=== PATIENT | female | born 1995 | race Caucasian/White ===

== ENCOUNTER 2016-09-10 22:05 | Emergency (ER) | payer MEDICAID ==
[~2016-09-10] VITALS: Ht 157.5 cm; Wt 65.0 kg
[~2016-09-10 22:05] MED LIST: ADDE20TA PO; IBUP600T26 PO; VERMOX PO
[2016-09-10 22:10] VITALS: BP 114/79; PULSE 90; RESP 18; TEMP 98.3; O2SAT 99
[2016-09-10 22:20] VITALS: BP 114/79; PULSE 90; RESP 18; TEMP 98.3; O2SAT 99
[2016-09-10] MEDS ORDERED: ADDE30TA PO (22:24)
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
[2016-09-10] MEDS ORDERED: IBUP-232 PO (22:25)
[2016-09-10] MEDS ORDERED: IBUPROFEN 400 MG TAB PO ONE (22:30)
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
[2016-09-11 00:24] VITALS: BP 110/74; PULSE 78; RESP 18; O2SAT 99
== END 2016-09-11 00:28 | disposition home or self-care (01) ==
LOC: PHED 22:05
DX: S60.222A Contusion of left hand, initial encounter (principal); W22.8XXA Striking against or struck by other objects, initial encounter; Y93.89 Activity, other specified; Y92.9 Unspecified place or not applicable
CPT/HCPCS: 73130; 99283

== ENCOUNTER 2017-07-20 02:41 | Emergency (ER) | payer OTHER, MEDICAID ==
[~2017-07-20 02:41] MED LIST changes: -ADDE20TA PO; +ADDE30TA PO; +IBUP-232 PO; -IBUP600T26 PO; -VERMOX PO
[2017-07-20 02:48] VITALS: BP 124/74; PULSE 111; RESP 20; TEMP 97.8; O2SAT 100
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
[2017-07-20] MEDS ORDERED: TETANUS/DIPHTHERIA TOXOID ADULT 0.5 ML VIAL IM ONE (03:15)
[2017-07-20] MEDS ORDERED: IBUPROFEN 800 MG TAB PO ONE (03:15)
[2017-07-20] MEDS ORDERED: CYCL10TA PO (03:23)
[2017-07-20] MEDS ORDERED: DICL75TA PO (03:23)
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
[2017-07-20] MEDS ORDERED: BACL20TA PO (21:08)
== END 2017-07-20 03:36 | disposition home or self-care (01) ==
LOC: NEPD 02:41
DX: S60.221A Contusion of right hand, initial encounter (principal); S80.11XA Contusion of right lower leg, initial encounter; S00.03XA Contusion of scalp, initial encounter; F90.9 Attention-deficit hyperactivity disorder, unspecified type; Z23 Encounter for immunization; Z72.0 Tobacco use; V43.52XA Car driver injured in collision with other type car in traffic accident, initial encounter
CPT/HCPCS: 73130; 90471; 90714

== ENCOUNTER 2017-07-20 18:26 | Emergency (ER) | payer OTHER, MEDICAID ==
[~2017-07-20] VITALS: Ht 157.5 cm; Wt 67.0 kg
[~2017-07-20 18:26] MED LIST changes: +CYCL10TA PO; +DICL75TA PO
[2017-07-20 18:27] VITALS: BP 107/64; PULSE 73; RESP 16; TEMP 98.5; O2SAT 100
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
[2017-07-20] MEDS ORDERED: ORPHENADRINE INJ 60 MG/2 ML AMP IM ONE (19:45)
[2017-07-20] MEDS ORDERED: KETOROLAC TROMETHAMINE 60 MG/2 ML (IM) VIAL IM ONE (19:45)
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
[2017-07-20] MEDS ORDERED: BACL20TA PO (21:08)
== END 2017-07-20 21:32 | disposition home or self-care (01) ==
LOC: NEPD 18:26
DX: S16.1XXA Strain of muscle, fascia and tendon at neck level, initial encounter (principal); S39.012A Strain of muscle, fascia and tendon of lower back, initial encounter; S80.10XA Contusion of unspecified lower leg, initial encounter; S00.03XA Contusion of scalp, initial encounter; F90.9 Attention-deficit hyperactivity disorder, unspecified type; X58.XXXA Exposure to other specified factors, initial encounter; Z72.0 Tobacco use; Z79.899 Other long term (current) drug therapy
CPT/HCPCS: 70450; 72040; 72100; 96372; 99285; J1885; J2360

== ENCOUNTER 2017-11-09 05:44 | Emergency (ER) | payer MEDICAID ==
[~2017-11-09] VITALS: Ht 157.5 cm; Wt 62.7 kg
[~2017-11-09 05:44] MED LIST changes: +BACL20TA PO
[2017-11-09 05:49] VITALS: BP 115/65; PULSE 110; RESP 14; TEMP 97.7; O2SAT 98
[2017-11-09 06:03] VITALS: BP 115/65; PULSE 110; RESP 14; TEMP 97.7; O2SAT 98
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
[2017-11-09 08:02] VITALS: BP 125/61; PULSE 77; RESP 16; O2SAT 99
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
[2017-11-09] MEDS ORDERED: TRAM50TA PO (10:00)
--- NOTE | 2017-11-09 10:00 | PD ---
Physical Exam Narrative This is a 22-year-old female presents with lower back pain. MRI shows herniated disc at L4-L5. Patient will be given an appointment with orthopedics as an outpatient. Patient has no sensory or motor loss and is able to ambulate with no problems. the number of [facility] was given to the patient and she is stable to discharge. Last 24 hours Impressions Lumbar Spine MRI 11/09/17 0615 Signed Impressions: Service Date/Time: Thursday, November 09, 2017 09:00 - CONCLUSION: 1. At L4-5 there is a broad-based posterior disc protrusion, slightly worse on the left side with encroachment on the lateral recesses and anterior thecal sac. 2. At L5-S1 there is a smaller central disc extrusion without significant thecal sac stenosis. 3. Schmorl's node superior endplate L3. Conus medullaris intact. No acute fracture. Tremaine Barton MD Data Data Last Documented VS Vital Signs Date Time Temp Pulse Resp B/P (MAP) Pulse Ox O2 Delivery O2 Flow Rate FiO2 11/09/17 08:02 77 16 125/61 (82) 99 Room Air 11/09/17 06:03 97.7 Orders Orders Mri L Spine W/O Contrast (11/09/17 06:15) MDM Supervised Visit with SHRUTHI: Yes Diagnosis Primary Impression: Herniated lumbar intervertebral disc Scripts Tramadol (Tramadol) 50 Mg Tab 50 MG PO Q4H Y for PAIN, #28 TAB 0 Refills Prov: Evin Hernandez MD 11/09/17 Disposition: 01 DISCHARGE HOME Condition: Stable Evin Hernandez MD Nov 09, 2017 10:00
[2017-11-09] MEDS ORDERED: LUMBAR BACK BRA1 MIS (10:26)
== END 2017-11-09 11:10 | disposition home or self-care (01) ==
LOC: PHED 05:44
DX: M51.26 Other intervertebral disc displacement, lumbar region (principal); F17.210 Nicotine dependence, cigarettes, uncomplicated
CPT/HCPCS: 72148; 99284

== ENCOUNTER 2018-02-12 20:24 | Emergency (ER) | payer MEDICAID, OTHER ==
[~2018-02-12] VITALS: Ht 157.5 cm; Wt 57.9 kg
[~2018-02-12 20:24] MED LIST changes: -BACL20TA PO; -CYCL10TA PO; -DICL75TA PO; +LUMBAR BACK BRA1 MIS; +TRAM50TA PO
[2018-02-12 20:35] VITALS: BP 112/67; PULSE 81; RESP 16; TEMP 97.9; O2SAT 97
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
--- NOTE | 2018-02-12 22:47 | PD ---
HPI Chief Complaint: Cold / Flu Symptoms Time Seen by Provider: 22:41 Travel History International Travel<30 days: No Contact w/Intl Traveler<30days: No Traveled to known affect area: No History of Present Illness HPI The patient is a 22-year-old female that has had a cough and congestion for a week. She denies any fever or shortness of breath. She does not have any myalgias. The cough is likely the cause of a sore throat, the sore throat is very mild only a 3/10 and slight burning pain. She denies any nausea, vomiting or diarrhea. 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 Space doses at least 4 to 6 hours if more than once/day dosing. Review of Systems Except as stated in HPI: all other systems reviewed are Neg Physical Exam Narrative GENERAL: Well-nourished, well-developed patient in no respiratory distress. Her vital signs are normal. SKIN: Focused skin assessment warm/dry. No skin rash is seen. HEAD: Normocephalic. EYES: No scleral icterus. No injection or drainage. NECK: Supple, trachea midline. No JVD or lymphadenopathy. CARDIOVASCULAR: Regular rate and rhythm without murmurs, gallops, or rubs. RESPIRATORY: Breath sounds equal bilaterally. No accessory muscle use. Lungs clear to auscultation bilaterally. GASTROINTESTINAL: Abdomen soft, non-tender, nondistended. MUSCULOSKELETAL: No cyanosis, or edema. BACK: Nontender without obvious deformity. No CVA tenderness. ENT: The tympanic membranes are clear and the throat shows no erythema, exudate nor abscess. Data Data Last Documented VS Vital Signs Date Time Temp Pulse Resp B/P (MAP) Pulse Ox O2 Delivery O2 Flow Rate FiO2 02/12/18 20:35 97.9 81 16 112/67 (82) 97 Orders Orders Chest, Pa & Lat (02/12/18 ) Ed Discharge Order (02/12/18 22:48) MDM Medical Decision Making Medical Screen Exam Complete: Yes Emergency Medical Condition: Yes Medical Record Reviewed: Yes Differential Diagnosis Viral upper respiratory infection, pneumonia-unlikely, otitis media, strep pharyngitis-unlikely, intestinal infection Narrative Course The patient has a viral upper respiratory infection. She needs increased liquids, rest and is given a 3 day work excuse. She can take [id number] diphenhydramine (Benadryl) for sleep. She does not want a cough syrup. Diagnosis Primary Impression: Viral URI with cough Additional Instructions: Rest, increase liquids, work excuse will help to fight off this upper respiratory infection. Occasionally, viruses reduce resistance to things like pneumonia and if you get worse please return for reevaluation. Med/Other Pt SpecificInfo: No Change to Meds Disposition: 01 DISCHARGE HOME Condition: Stable Donnie Berumen MD Feb 12, 2018 22:47
== END 2018-02-12 22:57 | disposition home or self-care (01) ==
LOC: PHEFT 20:24
DX: J06.9 Acute upper respiratory infection, unspecified (principal); F90.9 Attention-deficit hyperactivity disorder, unspecified type; F17.200 Nicotine dependence, unspecified, uncomplicated; Z79.899 Other long term (current) drug therapy
CPT/HCPCS: 71046; 99283